=== PATIENT | male | born 1980 | race Caucasian/White ===

== ENCOUNTER 2020-06-09 11:59 | Emergency (ER) | payer BC, OTHER ==
[2020-06-09] MEDS ORDERED: Sodium Chloride 0.9% 10 ML Syringe FLUSH PRN (12:28)
[2020-06-09] MEDS ORDERED: Sodium Chloride 0.9% 2.5 ML Syringe FLUSH PRN (12:28)
--- NOTE | 2020-06-09 13:11 | EDM.PDOC ---
ED HPI GENERAL MEDICAL PROBLEM - General Chief Complaint: General Stated Complaint: PAIN BELOW STERNUM Time Seen by Provider: 06/09/20 12:01 Source of Information: Reports: Patient - History of Present Illness INITIAL COMMENTS - FREE TEXT/NARRATIVE: History of present illness: 39-year-old male presenting with lower chest/upper abdominal pain in the substernal/epigastric and bilateral lateral abdominal area for the last few weeks, worsening over the last few days. He describes it as an aching sensation like when you go to the gym and your muscles are sore the next day. He reports worsened when he lays down or walks or exerts himself. Mild associated shortness of breath. No cough, chills or fever, no body aches, no nausea or vomiting. He does report that he feels like his abdomen is distended and some constipation. No diarrhea. Reports his symptoms are similar to 2 and half years ago when he had fluid around his heart, seen on an echocardiogram. He is not sure the etiology of that other than that he has a significant family cardiac history including LA in both father and grandfather in their 40s and 60s. Father in his 60s of heart disease. Also has family history of factor V Leiden Review of systems: As per history of present illness and below otherwise all systems reviewed and negative. Past medical history: As per history of present illness and as reviewed below otherwise noncontributory. Cardiomegaly Surgical history: As per history of present illness and as reviewed below otherwise noncontributory. Social history: No reported history of drug or alcohol abuse. Uses vapor cigarettes, rare alcohol, no drugs Family history: As per history of present illness and as reviewed below otherwise noncontributory. Physical exam: GEN: no acute distress, well appearing HEENT: Atraumatic, normocephalic, mucous membranes moist, Neck: supple, nontender, trachea midline. Lungs: No respiratory distress. No rales, wheezing or rhonchi. No respiratory distress, no lower extremity edema Heart: RRR, no murmur, no rub, no irregularity Abdomen: Soft, nondistended, nontender. Back: nontender, no CVA tenderness Extremities: Atraumatic. Neurovascularly intact. Neuro: Awake, alert, oriented. Neuro Exam nonfocal. Skin: warm, dry, no lesions Diagnostics: Labs, EKG, CTA chest/abdomen/pelvis, COVID swab Therapeutics: Aspirin MDM: Impression: Plan: Definitive disposition and diagnosis as appropriate pending reevaluation and review of above. Chest Pain Score (Numeric/FACES): 5 - Related Data Allergies Allergy/AdvReac Type Severity Reaction Status Date / Time No Known Allergies Allergy Verified 06/09/20 12:59 Home Meds: Home Meds Furosemide [Lasix] 20 mg PO DAILY 06/09/20 [History] Metoprolol Succinate [[place]sp[place] Sprinkle] 200 mg PO DAILY 06/09/20 [History] Spironolactone 50 mg PO DAILY 06/09/20 [History] lisinopriL [Lisinopril] 40 mg PO DAILY 06/09/20 [History] Past Medical History HEENT History: Reports: None Cardiovascular History: Reports: High Cholesterol, Hypertension, Other (See Below) Other Cardiovascular History: Enlarged heart Respiratory History: Reports: None Gastrointestinal History: Reports: None Genitourinary History: Reports: None Musculoskeletal History: Reports: Amputation Neurological History: Reports: None Psychiatric History: Reports: Anxiety, Depression Endocrine/Metabolic History: Reports: None Dermatologic History: Reports: None - Infectious Disease History Infectious Disease History: Reports: Chicken Pox - Past Surgical History Other Musculoskeletal Surgeries/Procedures:: Ambutation of Right Index finger Social & Family History - Family History Cardiac: Reports: Arrhythmia, Cardiomyopathy, Heart Failure, High Cholesterol, Hypertension, LA - Tobacco Use Smoking Status *Q: Never Smoker - Caffeine Use Caffeine Use: Reports: None - Recreational Drug Use Recreational Drug Use: No ED ROS GENERAL - Review of Systems Review Of Systems: See Below (See HPI) ED EXAM, GENERAL - Physical Exam Exam: See Below (See HPI) EKG INTERPRETATION EKG Interpretation Comments: EKG performed today at 12:48 PM, sinus rhythm, rate 95, left atrial enlargement, no acute ischemia, no STEMI. Interpreted by me. Course - Vital Signs Text/Narrative:: Chest pain, abdominal pain, ongoing for 2 weeks, EKG unremarkable, CT angios chest/abdomen/pelvis with no dissection, no pulmonary embolism, no pericardial effusion, several lymph nodes in the pericardial fat and trace right pleural effusion, troponin negative, BNP slightly elevated. Patient does have strong family cardiac history, however no other acute findings on work-up here today, and pain has been ongoing for the last 2 weeks Reports symptoms started after he started to have the intense progressing month- long workout. He already has upcoming cardiology follow-up and will also refer back to primary care as well to get in to be seen sooner. The previous echocardiogram reports were reviewed from September 2018, during the patient's initial episode and June and August 2019. The patient's ejection fraction has ranged from 25 to 30% to 20 to 25%. No previous mention of the lymph node on prior echocardiograms. This was discussed with the patient. COVID swab negative. Stable for discharge. Last Recorded V/S: Last Vital Signs Temp 96 F L 06/09/20 12:19 Pulse 90 06/09/20 14:47 Resp 14 06/09/20 14:47 BP 120/79 06/09/20 14:47 Pulse Ox 96 06/09/20 14:47 - Orders/Labs/Meds Orders: Active Orders 24 hr Category Date Time Status Cardiac Monitoring [RC] . DIRECTED Care 06/09/20 12:28 Active EKG Documentation Completion [RC] STAT Care 06/09/20 12:29 Active Sodium Chloride 0.9% [Saline Flush] Med 06/09/20 12:28 Active 10 ml FLUSH ASDIRECTED PRN Sodium Chloride 0.9% [Saline Flush] Med 06/09/20 12:28 Active 2.5 ml FLUSH ASDIRECTED PRN Saline Lock Insert [OM.PC] Stat Oth 06/09/20 12:28 Ordered Medication Orders Sodium Chloride (Saline Flush) 10 ml FLUSH ASDIRECTED PRN PRN Reason: Keep Vein Open Last Admin: 06/09/20 14:54 Dose: 10 ml Documented by: CARINA Sodium Chloride (Saline Flush) 2.5 ml FLUSH ASDIRECTED PRN PRN Reason: Keep Vein Open Last Admin: 06/09/20 14:55 Dose: 2.5 ml Documented by: CARINA Labs: Laboratory Tests 06/09/20 06/09/20 06/09/20 Range/Units 12:35 12:35 12:35 WBC 9.18 (4.0-11.0) K/uL RBC 4.94 (4.50-5.90) M/uL Hgb 14.7 (13.0-17.0) g/dL Hct 43.5 (38.0-50.0) % MCV 88.1 (80.0-98.0) fL MCH 29.8 (27.0-32.0) pg MCHC 33.8 (31.0-37.0) g/dL RDW Std Deviation 44.3 (28.0-62.0) fl RDW Coeff of Abraham 14 (11.0-15.0) % Plt Count 207 (150-400) K/uL MPV 11.00 (7.40-12.00) fL Neut % (Auto) 70.9 (48.0-80.0) % Lymph % (Auto) 22.9 (16.0-40.0) % Pierce % (Auto) 5.8 (0.0-15.0) % Eos % (Auto) 0.3 (0.0-7.0) % Baso % (Auto) 0.1 (0.0-1.5) % Neut # (Auto) 6.5 H (1.4-5.7) K/uL Lymph # (Auto) 2.1 (0.6-2.4) K/uL Pierce # (Auto) 0.5 (0.0-0.8) K/uL Eos # (Auto) 0.0 (0.0-0.7) K/uL Baso # (Auto) 0.0 (0.0-0.1) K/uL Nucleated RBC % 0.0 /100WBC Nucleated RBCs # 0 K/uL INR Sodium 139 (136-148) mmol/L Potassium 4.0 (3.5-5.1) mmol/L Chloride 105 (98-107) mmol/L Carbon Dioxide 26.1 (21.0-32.0) mmol/L BUN 15 (7.0-18.0) mg/dL Creatinine 1.4 H (0.8-1.3) mg/dL Est Cr Clr Drug Dosing 85.51 mL/min Estimated GFR (MDRD) 56.7 ml/min Glucose 124 H (74-106) mg/dL Calcium 8.6 (8.5-10.1) mg/dL Magnesium 1.8 (1.8-2.4) mg/dL Total Bilirubin 0.6 (0.2-1.0) mg/dL AST 39 H (15-37) IU/L ALT 62 (14-63) IU/L Alkaline Phosphatase 48 (46-116) U/L Troponin I (0.000-0.056) ng/mL B-Natriuretic Peptide 295 H (<100) PG/ML Total Protein 7.0 (6.4-8.2) g/dL Albumin 3.7 (3.4-5.0) g/dL Globulin 3.3 (2.6-4.0) g/dL Albumin/Globulin Ratio 1.1 (0.9-1.6) Lipase 137 (73-393) U/L COVID-19 (SUE) (NEGATIVE) 06/09/20 06/09/20 06/09/20 Range/Units 12:35 13:20 14:53 WBC (4.0-11.0) K/uL RBC (4.50-5.90) M/uL Hgb (13.0-17.0) g/dL Hct (38.0-50.0) % MCV (80.0-98.0) fL MCH (27.0-32.0) pg MCHC (31.0-37.0) g/dL RDW Std Deviation (28.0-62.0) fl RDW Coeff of Abraham (11.0-15.0) % Plt Count (150-400) K/uL MPV (7.40-12.00) fL Neut % (Auto) (48.0-80.0) % Lymph % (Auto) (16.0-40.0) % Pierce % (Auto) (0.0-15.0) % Eos % (Auto) (0.0-7.0) % Baso % (Auto) (0.0-1.5) % Neut # (Auto) (1.4-5.7) K/uL Lymph # (Auto) (0.6-2.4) K/uL Pierce # (Auto) (0.0-0.8) K/uL Eos # (Auto) (0.0-0.7) K/uL Baso # (Auto) (0.0-0.1) K/uL Nucleated RBC % /100WBC Nucleated RBCs # K/uL INR 1.03 Sodium (136-148) mmol/L Potassium (3.5-5.1) mmol/L Chloride (98-107) mmol/L Carbon Dioxide (21.0-32.0) mmol/L BUN (7.0-18.0) mg/dL Creatinine (0.8-1.3) mg/dL Est Cr Clr Drug Dosing mL/min Estimated GFR (MDRD) ml/min Glucose (74-106) mg/dL Calcium (8.5-10.1) mg/dL Magnesium (1.8-2.4) mg/dL Total Bilirubin (0.2-1.0) mg/dL AST (15-37) IU/L ALT (14-63) IU/L Alkaline Phosphatase (46-116) U/L Troponin I < 0.050 (0.000-0.056) ng/mL B-Natriuretic Peptide (<100) PG/ML Total Protein (6.4-8.2) g/dL Albumin (3.4-5.0) g/dL Globulin (2.6-4.0) g/dL Albumin/Globulin Ratio (0.9-1.6) Lipase (73-393) U/L COVID-19 (SUE) NEGATIVE (NEGATIVE) Meds: Medications Generic Name Dose Route Start Last Admin Trade Name Freq PRN Reason Stop Dose Admin Sodium Chloride 10 ml 06/09/20 12:28 06/09/20 14:54 Saline Flush FLUSH 10 ml ASDIRECTED PRN Administration Keep Vein Open Sodium Chloride 2.5 ml 06/09/20 12:28 06/09/20 14:55 Saline Flush FLUSH 2.5 ml ASDIRECTED PRN Administration Keep Vein Open Discontinued Medications Generic Name Dose Route Start Last Admin Trade Name Freq PRN Reason Stop Dose Admin Aspirin 324 mg 06/09/20 14:48 06/09/20 14:56 Aspirin PO 06/09/20 14:49 324 mg ONETIME ONE Administration Iopamidol 100 ml 06/09/20 14:37 06/09/20 14:38 Isovue Multipack-370 (76%) IVPUSH 06/09/20 14:38 100 ml ONETIME STA Administration - Re-Assessments/Exams Free Text/Narrative Re-Assessment/Exam: 06/09/20 15:00 The patient is comfortably and in no acute distress. He reports pain is approximately the same, has not worsened at all. Aspirin has been ordered and will be given. Discussed with patient all available results including all CT scan and labs. Only abnormal finding was on the CT scan in the pericardial fat there is a 4 cm lymph node as well as several other lymph nodes. This was discussed directly with the patient. He has no known prior history of cancer and has not had any pains or unexplained weight loss. He did report he was told there was some kind of a "? Cyst" (he cannot remember the exact terminology used) in the pericardial fat previously on his echocardiogram and he is wondering if that may be what they are referring to. Did discuss the possibility of some form of cancer including possibly metastatic cancer, and the need for outpatient follow-up with both primary care and cardiology. He does report he already has cardiology follow-up for June 27 and will keep that appointment. He also agrees to follow-up with his PCP. I did give him a copy of the CT scan report so that he can bring this to the appointment to discuss this directly with them for planning for further monitoring and evaluation. He does agree to do so. Departure - Departure Time of Disposition: 15:36 Disposition: Home, Self-Care 01 Clinical Impression: Chest pain, Abdominal pain, Enlarged lymph node - Discharge Information Instructions: Nonspecific Chest Pain, Adult Referrals: Chepe Oscar MD [Physician] - Forms: ED Department Discharge Additional Instructions: You were seen here today for chest pain, your work-up here today has been negative so far except that there is a lymph node in the fat around your heart. This will need to be closely monitored and possibly have further work-up done by her primary care physician or double needle stitcher. Please keep your upcoming cardiology appointment or call them to see if they can see you sooner. Also please call 1 of the primary care clinics listed below for further evaluation and continued ongoing primary care. Return to the ER for any worsening pain or difficulty breathing. Take Tylenol 500 mg to 1000 mg every 8 hours for the next few days and reassess your pain level. he following information is given to patients seen in the emergency department who are being discharged to home. This information is to outline your options for follow-up care. We provide all patients seen in our emergency department with a follow-up referral. The need for follow-up, as well as the timing and circumstances, are variable depending upon the specifics of your emergency department visit. If you don't have a primary care physician on staff, we will provide you with a referral. We always advise you to contact your personal physician following an emergency department visit to inform them of the circumstance of the visit and for follow-up with them and/or the need for any referrals to a consulting specialist. The emergency department will also refer you to a specialist when appropriate. This referral assures that you have the opportunity for follow-up care with a specialist. All of these measure are taken in an effort to provide you with optimal care, which includes your follow-up. Under all circumstances we always encourage you to contact your private physician who remains a resource for coordinating your care. When calling for follow-up care, please make the office aware that this follow-up is from your recent emergency room visit. If for any reason you are refused follow-up, please contact the [facility] Emergency Department at and asked to speak to the emergency department charge nurse. [facility] [address] [place], [place] [id number] [place] [address] Sepsis Event Note (ED) - Evaluation Sepsis Screening Result: Possible Sepsis Risk - Focused Exam Vital Signs: Vital Signs Temp Pulse Resp BP Pulse Ox 06/09/20 14:47 90 14 120/79 96 06/09/20 14:17 93 13 112/69 95 06/09/20 14:06 95 97 06/09/20 13:00 97 21 H 94 L 06/09/20 12:19 96 F L 103 H 20 111/81 96 - My Orders Last 24 Hours: My Active Orders 06/09/20 12:28 Cardiac Monitoring [RC] . DIRECTED Sodium Chloride 0.9% [Saline Flush] 10 ml FLUSH ASDIRECTED PRN Sodium Chloride 0.9% [Saline Flush] 2.5 ml FLUSH ASDIRECTED PRN Saline Lock Insert [OM.PC] Stat 06/09/20 12:29 EKG Documentation Completion [RC] STAT - Assessment/Plan Last 24 Hours: My Active Orders 06/09/20 12:28 Cardiac Monitoring [RC] . DIRECTED Sodium Chloride 0.9% [Saline Flush] 10 ml FLUSH ASDIRECTED PRN Sodium Chloride 0.9% [Saline Flush] 2.5 ml FLUSH ASDIRECTED PRN Saline Lock Insert [OM.PC] Stat 06/09/20 12:29 EKG Documentation Completion [RC] STAT
[2020-06-09 13:15] LABS: CARBON DIOXIDE,CO2 26.1 mmol/L (21.0-32.0)
[2020-06-09] MEDS ORDERED: Iopamidol 755 MG/ML 500 ML Multipack Bottle IVPUSH STA (14:37)
--- NOTE | 2020-06-09 14:39 | CT ---
CT chest Technique: Multiple axial sections were obtained from above the lung apices inferiorly through the lung bases. Intravenous contrast was utilized as an aortogram study. Pulmonary arteries are not optimally opacified for good evaluation of pulmonary embolism. Comparison: No prior chest imaging is available. Findings: Thoracic aorta shows no aneurysm or dissection. Pulmonary arteries are suboptimally opacified. No larger pulmonary emboli within the main or segmental branches are seen. Smaller pulmonary emboli or subsegmental pulmonary emboli could easily be missed. Slight lymph nodes is noted within the mediastinum believed to be within normal limits. There are an enlarged lymph nodes noted within the paracardial fat with largest lymph node measuring about 4.3 cm. Trace right-sided pleural effusion is seen. No axillary adenopathy is seen. Impression: 1. Enlarged lymph nodes within the right paracardial fat with largest lymph node measuring 4.3 cm. Etiology for this finding is not seen and difficult to exclude metastatic lymph nodes, although no additional adenopathy is seen within other portions of the chest or abdomen. 2. No evidence of thoracic aortic aneurysm or dissection. 3. Suboptimal opacification of the pulmonary arteries. No larger pulmonary embolism within the main or proximal segmental branches. Smaller pulmonary emboli and subsegmental pulmonary emboli could easily be missed. 4. Trace right-sided pleural effusion. Diagnostic code #9 CT abdomen and pelvis Technique: Multiple axial sections were obtained from above the dome of the diaphragm inferiorly through the pubic symphysis. Intravenous contrast was utilized. No oral contrast has been given. Comparison: No prior abdominal imaging is available. Findings: Abdominal aorta shows no aneurysm. Celiac axis, superior mesenteric arteries and renal arteries are patent without significant stenosis or occlusion. Inferior mesenteric artery is also patent. Both common iliacs as well as internal and external iliac arteries are patent. Gallbladder contains no calcified gallstones. Liver contains no focal abnormality. Spleen shows no abnormality. Kidneys show symmetric contrast enhancement without hydronephrosis or mass. No retroperitoneal adenopathy or mesenteric abnormalities are seen. No pelvic mass or adenopathy is seen. No free fluid or inflammatory change is seen. Appendix not visualized. Bone window settings were reviewed which appear within normal limits for the patient's age. No acute osseous finding is appreciated. Impression: 1. Nothing acute is appreciated on CT study of the abdomen and pelvis. Abdominal aorta specifically shows no aneurysm or dissection. Diagnostic code #2 This report was dictated in MDT
--- NOTE | 2020-06-09 14:39 | CT ---
This study was dictated as part of CT angiogram of abdomen and pelvis.
[2020-06-09] MEDS ORDERED: Aspirin 81 MG Tab.Chew PO ONE (14:48)
== END 2020-06-09 15:50 | disposition home or self-care (01) ==
LOC: MW.ED 11:59
DX: R07.9 Chest pain, unspecified (principal); R10.13 Epigastric pain; R59.9 Enlarged lymph nodes, unspecified; I10 Essential (primary) hypertension; Z20.828 Contact with and (suspected) exposure to other viral communicable diseases; Z79.899 Other long term (current) drug therapy
CPT/HCPCS: 36415; 71275; 74174; 80053; 83690; 83735; 83880; 84484; 85025; 85610; 87635; 93005; 99285; A9270; Q9967; 99283; U0002

== ENCOUNTER 2020-11-11 20:43 | Emergency (ER) | payer BC ==
[2020-11-11 22:03] LABS: BLOOD UREA NITROGEN,BUN 20 mg/dL (7.0-18.0); CHLORIDE,CL 106 mmol/L (98-107); GLUCOSE RANDOM 118 mg/dL (74-106); POTASSIUM,K 3.8 mmol/L (3.5-5.1); SODIUM,NA 143 mmol/L (136-148)
--- NOTE | 2020-11-11 22:10 | CR ---
Indication: Shortness of breath Technique: Chest 1 view Comparison: Chest x-ray 09/18/2018 Findings/Impression: Cardiovascular and mediastinum: Prominent globular cardiomegaly. Normal pulmonary vascularity. Lungs and pleural space: Lungs are clear. No sign of infiltrate or mass. No sign of pleural effusion. No pneumothorax. Bones and soft tissues: No acute findings. Dictated by Zachariah Shine MD @ Nov 11 2020 10:03PM Signed by Dr. Zachariah Shine @ Nov 11 2020 10:08PM
[2020-11-12] MEDS ORDERED: Furosemide 40 MG/4 ML VIAL IVPUSH ONE (01:06)
--- NOTE | 2020-11-12 02:26 | EDM.PDOC ---
ED HPI GENERAL MEDICAL PROBLEM - General Chief Complaint: Cardiovascular Problem Stated Complaint: HEADACHE Time Seen by Provider: 11/11/20 21:07 - History of Present Illness INITIAL COMMENTS - FREE TEXT/NARRATIVE: CHIEF COMPLAINT(S): Shortness of breath HISTORY OF PRESENT ILLNESS: This is a 40-year-old man with a past medical history of CHF with EF less than 20% who comes to the emergency department with a chief complaint of shortness of breath. The patient states that throughout the day he has been experiencing lightheadedness especially with walking and feels like he has knots in his throat. He states he is experiencing shortness of breath especially when walking and has been more fatigued. He denies any chest pain and denies any orthopnea. He states he does have some increased swelling in his lower extremities for which he does take Lasix. He denies any cough, fever, chills. He denies any pain. He denies any prior history of DVT or PE. He denies any recent travel or recent surgery. He states that he did not elect to get a defibrillator because of his job. REVIEW OF SYSTEMS: Constitutional: Positive for dizziness. Denies fever, chills. Eyes: Denies eye pain Ears, Nose, Mouth, & Throat: Denies earache Cardiovascular: Positive for lower extremity edema. Denies chest pain Respiratory: Shortness of breath and exertional dyspnea Gastrointestinal: Denies Nausea, vomiting, diarrhea, hematochezia. Genitourinary: Denies hematuria Skin:Denies a rash Neurological: Denies blurred vision numbness, tingling, weakness Psychiatric: Denies depression PAST MEDICAL HISTORY: As per history of present illness and as reviewed below otherwise noncontributory. SURGICAL HISTORY: As per history of present illness and as reviewed below otherwise noncontributory. SOCIAL HISTORY: As per history of present illness and as reviewed below otherwise noncontributory. FAMILY HISTORY: As per history of present illness and as reviewed below otherwise noncontributory. EXAMINATION OF ORGAN SYSTEMS/BODY AREAS: Constitutional: Blood pressure was 116/78, heart rate 111, respiratory rate 18 with an oxygen saturation of 94% on room air. Temperature 36.7 General: Morbidly obese gentleman who appears to be in no acute distress. Psychiatric: Appropriate mood and affect. Eyes: No scleral icterus or conjunctival erythema ENMT: Moist mucous membranes. No pharyngeal erythema Cardiovascular: Regular, rate, and rhythm. No gallops, murmurs, or rubs. Bilateral upper extremity pulses symmetric and intact. Trace pitting edema of the bilateral lower extremities. This is symmetrical. No JVD. Respiratory: Lungs clear to auscultation bilaterally. No wheezes, rales, or rhonchi. Gastrointestinal: Soft, non-tender, non-distended. Normoactive bowel sounds Genitourinary: No suprapubic tenderness Musculoskeletal: Normal range of motion. Skin: No lesions or abrasions. Neurological: Alert, GCS 15 MEDICAL DECISION MAKING AND COURSE IN THE ED WITH INTERPRETATION/REVIEW OF DIAGNOSTIC STUDIES: This is a 40-year-old man with a past medical history of CHF with an ejection fraction less than 20% who comes to the emergency department with exertional dyspnea, dizziness and shortness of breath with initial oxygen saturation 94%. On my evaluation the patient's oxygen saturation was 96% and he was not tachypneic speaking in full sentences. Given his history of heart failure we will obtain an EKG and a cardiac work-up. Obtain a Covid swab and a chest x-ray. Twelve-lead EKG interpreted by myself. Normal sinus rhythm at a rate of 104 beats per minute. Normal axis. TX interval is 154 ms. QRS duration is [address] segments are normal without elevations or depressions. No Q waves present. Hypertrophy not noted. No changes demonstrated from prior EKG dated 06/09/2020. Interpretation: Normal sinus rhythm Laboratory: CBC is unremarkable. Coags are within normal limits. MP reveals mildly elevated BUN at 20, hyperglycemia at 118 otherwise unremarkable. Troponin x2 is negative. BNP is elevated at 324 which is increased from before at 295. This is significantly increased from December 2018. The radiological images were viewed by myself along with reading the report from the radiologist. Chest x-ray reveals globular cardiomegaly without any pulmonary vascular congestion or pulmonary edema. No acute findings. After labs I did discuss with the patient that given his history of heart fail ure I do believe that his symptoms are likely secondary to heart failure exacerbation although mild. I did discuss with him that given that he is high risk I would like to admit him to the hospital for heart failure exacerbation. He was amenable with this plan. We will provide the patient with 20 mg of IV Lasix. Prior to contacting Dr. Ricketts the patient stated that he did not want to stay in the hospital as he is urinating with the Lasix we have already given him. I did discuss with him that given that his severe heart failure discharge could likely and in his as he is high risk and that I would like him to be admitted. He states that he understands the risk and would like to be discharged. He states that he could contact his doctor Dr. Rod for close follow-up. The patient was apprised of the potential risks of leaving the hospital AGAINST MEDICAL ADVICE. They include serious complications, permanent disability, and . At the time of my interview with the patient, the patient was alert, oriented, and capable. I urged the patient to return to the hospital as soon as possible to complete their evaluation and treatment. DISPOSITION: The patient left AGAINST MEDICAL ADVICE. CONDITION: Serious PROCEDURES: None FINAL IMPRESSION(S)/DIAGNOSES: 1. Acute CHF exacerbation Akash Villarreal M.D. - Related Data Allergies Allergy/AdvReac Type Severity Reaction Status Date / Time No Known Allergies Allergy Verified 11/11/20 21:08 Home Meds: Home Meds Furosemide [Lasix] 20 mg PO DAILY 06/09/20 [History] Metoprolol Succinate [[place]sp[place] Sprinkle] 200 mg PO DAILY 06/09/20 [History] lisinopriL [Lisinopril] 40 mg PO DAILY 06/09/20 [History] Past Medical History HEENT History: Reports: None Cardiovascular History: Reports: High Cholesterol, Hypertension, Other (See Below) Other Cardiovascular History: Enlarged heart Respiratory History: Reports: None Gastrointestinal History: Reports: None Genitourinary History: Reports: None Musculoskeletal History: Reports: Amputation Neurological History: Reports: None Psychiatric History: Reports: Anxiety, Depression Endocrine/Metabolic History: Reports: None Dermatologic History: Reports: None - Infectious Disease History Infectious Disease History: Reports: Chicken Pox - Past Surgical History Other Musculoskeletal Surgeries/Procedures:: Ambutation of Right Index finger Social & Family History - Family History Cardiac: Reports: Arrhythmia, Cardiomyopathy, Heart Failure, High Cholesterol, Hypertension, [place] - Caffeine Use Caffeine Use: Reports: None - Recreational Drug Use Recreational Drug Use: No ED ROS GENERAL - Review of Systems Review Of Systems: See Below ED EXAM, GENERAL - Physical Exam Exam: See Below Course - Vital Signs Last Recorded V/S: Last Vital Signs Temp 36.6 C 11/12/20 02:45 Pulse 105 H 11/12/20 02:45 Resp 16 11/12/20 02:45 BP 117/84 11/12/20 02:45 Pulse Ox 96 11/12/20 02:45 - Orders/Labs/Meds Labs: Laboratory Tests 11/11/20 11/11/20 11/11/20 Range/Units 21:15 21:15 21:15 WBC 7.73 (4.0-11.0) K/uL RBC 4.88 (4.50-5.90) M/uL Hgb 14.4 (13.0-17.0) g/dL Hct 43.8 (38.0-50.0) % MCV 89.8 (80.0-98.0) fL MCH 29.5 (27.0-32.0) pg MCHC 32.9 (31.0-37.0) g/dL RDW Std Deviation 45.0 (28.0-62.0) fl RDW Coeff of Abraham 14 (11.0-15.0) % Plt Count 166 (150-400) K/uL MPV 10.80 (7.40-12.00) fL Neut % (Auto) 68.1 (48.0-80.0) % Lymph % (Auto) 23.2 (16.0-40.0) % Lucas % (Auto) 8.0 (0.0-15.0) % Eos % (Auto) 0.6 (0.0-7.0) % Baso % (Auto) 0.1 (0.0-1.5) % Neut # (Auto) 5.3 (1.4-5.7) K/uL Lymph # (Auto) 1.8 (0.6-2.4) K/uL Lucas # (Auto) 0.6 (0.0-0.8) K/uL Eos # (Auto) 0.1 (0.0-0.7) K/uL Baso # (Auto) 0.0 (0.0-0.1) K/uL Nucleated RBC % 0.0 /100WBC Nucleated RBCs # 0 K/uL INR 1.09 Sodium 143 (136-148) mmol/L Potassium 3.8 (3.5-5.1) mmol/L Chloride 106 (98-107) mmol/L Carbon Dioxide 26.0 (21.0-32.0) mmol/L BUN 20 H (7.0-18.0) mg/dL Creatinine 1.3 (0.8-1.3) mg/dL Est Cr Clr Drug Dosing 91.18 mL/min Estimated GFR (MDRD) > 60.0 ml/min Glucose 118 H (74-106) mg/dL Calcium 8.9 (8.5-10.1) mg/dL Magnesium 2.0 (1.8-2.4) mg/dL Troponin I < 0.050 (0.000-0.056) ng/mL B-Natriuretic Peptide (<100) PG/ML SARS-CoV-2 RNA (SUE) (NEGATIVE) 11/11/20 11/12/20 11/12/20 Range/Units 21:15 00:00 00:40 WBC (4.0-11.0) K/uL RBC (4.50-5.90) M/uL Hgb (13.0-17.0) g/dL Hct (38.0-50.0) % MCV (80.0-98.0) fL MCH (27.0-32.0) pg MCHC (31.0-37.0) g/dL RDW Std Deviation (28.0-62.0) fl RDW Coeff of Abraham (11.0-15.0) % Plt Count (150-400) K/uL MPV (7.40-12.00) fL Neut % (Auto) (48.0-80.0) % Lymph % (Auto) (16.0-40.0) % Lucas % (Auto) (0.0-15.0) % Eos % (Auto) (0.0-7.0) % Baso % (Auto) (0.0-1.5) % Neut # (Auto) (1.4-5.7) K/uL Lymph # (Auto) (0.6-2.4) K/uL Lucas # (Auto) (0.0-0.8) K/uL Eos # (Auto) (0.0-0.7) K/uL Baso # (Auto) (0.0-0.1) K/uL Nucleated RBC % /100WBC Nucleated RBCs # K/uL INR Sodium (136-148) mmol/L Potassium (3.5-5.1) mmol/L Chloride (98-107) mmol/L Carbon Dioxide (21.0-32.0) mmol/L BUN (7.0-18.0) mg/dL Creatinine (0.8-1.3) mg/dL Est Cr Clr Drug Dosing mL/min Estimated GFR (MDRD) ml/min Glucose (74-106) mg/dL Calcium (8.5-10.1) mg/dL Magnesium (1.8-2.4) mg/dL Troponin I < 0.050 (0.000-0.056) ng/mL B-Natriuretic Peptide 324 H (<100) PG/ML SARS-CoV-2 RNA (SUE) NEGATIVE (NEGATIVE) Meds: Medications Discontinued Medications Generic Name Dose Route Start Last Admin Trade Name Freq PRN Reason Stop Dose Admin Furosemide 20 mg 11/12/20 01:06 11/12/20 01:21 Lasix IVPUSH 11/12/20 01:07 20 mg NOW ONE Administration Departure - Departure Time of Disposition: 02:20 Disposition: Home, Self-Care 01 Condition: Fair Clinical Impression: Congestive heart failure Qualifiers: Heart failure type: unspecified Heart failure chronicity: acute on chronic Qualified Code(s): I50.9 - Heart failure, unspecified Instructions: Heart Failure, Self Care, [id number], Heart Failure Action Plan, Preventing Heart Failure, Heart Failure Exacerbation Referrals: PCP,None [Primary Care Provider] - Chepe Oscar MD [Physician] - Forms: ED Department Discharge, Refusal of Care AMA Additional Instructions: Your evaluated today on an emergent basis. At this time I did suggest you be admitted for mild heart failure exacerbation. We did provide you with Lasix and you were maintaining adequate urine output. I would continue your home Lasix dose. 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 If you have any worsening shortness of breath I do recommend you immediately come back to the emergency department. The patient was apprised of the potential risks of leaving the hospital AGAINST MEDICAL ADVICE. They include serious complications, permanent disability, and . At the time of my interview with the patient, the patient was alert, oriented, and capable. I urged the patient to return to the hospital as soon as possible to complete their evaluation and treatment. [facility] [address] [place] [address] [facility] [address] [place] [address] The patient is informed of any results of their evaluation and diagnostic workup and all questions are answered. They are given discharge instructions and return precautions. The patient is stable for discharge. The patient states they understand and agree with the plan and that they will return if their symptoms get worse or if they have any new concerns. The following information is given to patients seen in the emergency department who are being discharged to home. This information is to outline your options for follow-up care. We provide all patients seen in our emergency department with a follow-up referral. The need for follow-up, as well as the timing and circumstances, are variable depending upon the specifics of your emergency department visit. If you don't have a primary care physician on staff, we will provide you with a referral. We always advise you to contact your personal physician following an emergency department visit to inform them of the circumstance of the visit and for follow-up with them and/or the need for any referrals to a consulting specialist. The emergency department will also refer you to a specialist when appropriate. This referral assures that you have the opportunity for follow-up care with a specialist. All of these measure are taken in an effort to provide you with optimal care, which includes your follow-up. Under all circumstances we always encourage you to contact your private physician who remains a resource for coordinating your care. When calling for follow-up care, please make the office aware that this follow-up is from your recent emergency room visit. If for any reason you are refused follow-up, please contact the [facility] Emergency Department at and asked to speak to the emergency department charge nurse. Sepsis Event Note (ED) - Evaluation Sepsis Screening Result: No Definite Risk
== END 2020-11-12 02:45 | disposition home or self-care (01) ==
LOC: MW.ED 20:43
DX: I11.0 Hypertensive heart disease with heart failure (principal); I50.9 Heart failure, unspecified; Z79.899 Other long term (current) drug therapy; Z20.822 Contact with and (suspected) exposure to COVID-19
CPT/HCPCS: 36415; 71045; 80048; 83735; 83880; 84484; 85025; 85610; 87635; 93005; 96374; 99285; J1940; 93010; 99284; U0002

== ENCOUNTER 2022-06-22 17:07 | Emergency (ER) | payer BC ==
[2022-06-22] MEDS ORDERED: Aspirin 81 MG Tab.Chew PO ONE (18:36)
[2022-06-22 18:55] LABS: CARBON DIOXIDE,CO2 28.2 mmol/L (21.0-32.0)
[2022-06-22 19:44] LABS: CORONAVIRUS COVID-19 NAA NEGATIVE (NEGATIVE); INFLUENZA A NAA NEGATIVE (NEGATIVE); INFLUENZA B NAA NEGATIVE (NEGATIVE)
[2022-06-22] MEDS ORDERED: Furosemide 40 MG/4 ML VIAL IVPUSH ONE (20:03)
== END 2022-06-22 22:15 ==
LOC: MW.ED 17:07
DX: I20.0 Unstable angina (principal); I11.0 Hypertensive heart disease with heart failure; I50.9 Heart failure, unspecified; R55 Syncope and collapse; E78.00 Pure hypercholesterolemia, unspecified; Z79.899 Other long term (current) drug therapy; Z20.822 Contact with and (suspected) exposure to COVID-19
CPT/HCPCS: 0240U; 36415; 71046; 80053; 83880; 84484; 85025; 93005; 96374; 99285; A9270; J1940

== ENCOUNTER 2022-10-26 12:57 | Emergency (ER) | payer BC ==
[2022-10-26] MEDS ORDERED: Sodium Chloride 0.9% 10 ML Syringe FLUSH PRN (13:12)
[2022-10-26] MEDS ORDERED: Sodium Chloride 0.9% 2.5 ML Syringe FLUSH PRN (13:12)
[2022-10-26 13:46] LABS: CARBON DIOXIDE,CO2 27.7 mmol/L (21.0-32.0); POTASSIUM,K 4.5 mmol/L (3.5-5.1)
[2022-10-26 14:09] LABS: CORONAVIRUS COVID-19 NAA NEGATIVE (NEGATIVE); INFLUENZA A NAA NEGATIVE (NEGATIVE); INFLUENZA B NAA NEGATIVE (NEGATIVE)
== END 2022-10-26 17:04 | disposition home or self-care (01) ==
LOC: MW.ED 12:57
DX: I11.0 Hypertensive heart disease with heart failure (principal); I50.9 Heart failure, unspecified; Z79.899 Other long term (current) drug therapy; Z72.0 Tobacco use; Z20.822 Contact with and (suspected) exposure to COVID-19
CPT/HCPCS: 0240U; 36415; 71045; 80053; 83880; 84484; 85025; 93005; 99285; J3490; 93010; 99284

== ENCOUNTER 2022-12-13 07:10 | Emergency (ER) | payer BC ==
[2022-12-13] MEDS ORDERED: Sodium Chloride 0.9% 20 ML SDV IV PRN (07:57)
[2022-12-13 08:16] LABS: CORONAVIRUS COVID-19 NAA NEGATIVE (NEGATIVE); INFLUENZA A NAA NEGATIVE (NEGATIVE); INFLUENZA B NAA NEGATIVE (NEGATIVE); RESPIRATORY SYNCYTIAL VIR NAA NEGATIVE (NEGATIVE)
[2022-12-13 09:33] LABS: CARBON DIOXIDE,CO2 22.5 mmol/L (21.0-32.0); POTASSIUM,K 4.5 mmol/L (3.5-5.1)
[2022-12-13] MEDS ORDERED: Ondansetron 4 MG/2 ML SDV IVPUSH ONE (09:55)
[2022-12-13] MEDS ORDERED: Furosemide 40 MG/4 ML VIAL IV ONE (10:30)
== END 2022-12-13 12:44 | disposition home or self-care (01) ==
LOC: MW.ED 07:10
DX: I11.0 Hypertensive heart disease with heart failure (principal); I50.9 Heart failure, unspecified; R53.83 Other fatigue; Z79.899 Other long term (current) drug therapy; Z20.822 Contact with and (suspected) exposure to COVID-19
CPT/HCPCS: 0241U; 36415; 71045; 80053; 83605; 83690; 83735; 83880; 84484; 85025; 85610; 85730; 86850; 86900; 86901; 87040; 93005; 96374; 96375; 99284; J1940; J2405

== ENCOUNTER 2024-08-11 05:21 | Emergency (ER) | payer BC ==
[2024-08-11] MEDS ORDERED: Sodium Chloride 0.9% 10 ML Syringe FLUSH PRN ×3 (05:31→05:49)
[2024-08-11] MEDS ORDERED: Furosemide 40 MG/4 ML VIAL IVPUSH ONE (05:49)
[2024-08-11 06:00] LABS: BASOPHILS ABSOLUTE AUTO 0.03 K/uL (0.00-0.20); BASOPHILS PERCENT AUTO 0.3 % (0.0-1.0); EOSINOPHILS ABSOLUTE AUTO 0.04 K/uL (0.00-0.45); EOSINOPHILS PERCENT AUTO 0.3 % (0.0-6.0); HEMATOCRIT 47.3 % (42.0-52.0); HEMOGLOBIN 15.7 g/dL (14.0-18.0); IMMATURE GRAN ABSOLUTE AUTO 0.03 K/uL (0.00-0.05); IMMATURE GRAN PERCENT AUTO 0.3 % (0.0-0.4); LYMPHOCYTES ABSOLUTE AUTO 1.84 K/uL (1.00-4.80); LYMPHOCYTES PERCENT AUTO 15.9 % (24.0-44.0); MEAN CORPUSCULAR HEMOGLOBIN 30.3 pg (28.0-32.0); MEAN CORPUSCULAR HGB CONC 33.2 g/dL (32.0-36.0); MEAN CORPUSCULAR VOLUME 91.3 fL (83.0-99.0); MEAN PLATELET VOLUME 10.6 fL (9.4-12.4); MONOCYTES ABSOLUTE AUTO 0.63 K/uL (0.00-0.80); MONOCYTES PERCENT AUTO 5.5 % (0.0-8.0); NEUTROPHILS ABSOLUTE AUTO 8.97 K/uL (1.80-7.70); NEUTROPHILS PERCENT AUTO 77.7 % (41.0-71.0); PLATELET COUNT,PLT 202 K/uL (150-400); RED BLOOD CELL COUNT 5.18 M/uL (4.52-5.90); WHITE BLOOD CELL COUNT,WBC 11.54 K/uL (3.9-11.3)
[2024-08-11] MEDS: Pantoprazole 40 MG in Sodium Chloride 0.9% 10 ML IVPUSH ONE (06:05)
[2024-08-11] MEDS: Ondansetron 4 MG/2 ML SDV IVPUSH ONE (06:06)
[2024-08-11 06:13] LABS: INR 1.14 (0.86-1.11)
[2024-08-11 06:26] LABS: A/G RATIO 1.1 (0.9-1.6); BILIRUBIN TOTAL 0.9 mg/dL (0.2-1.0); CALCIUM 9.2 mg/dL (8.5-10.1); CARBON DIOXIDE,CO2 26.6 mmol/L (21.0-32.0); CREATININE 1.8 mg/dL (0.8-1.3); EST CRCL DRUG DOSING (CG) 62.16 mL/min; MAGNESIUM 2.3 mg/dL (1.8-2.4); POTASSIUM,K 4.8 mmol/L (3.5-5.1); PROTEIN TOTAL,TP 7.6 g/dL (6.4-8.2)
[2024-08-11 06:38] LABS: CORONAVIRUS COVID-19 NAA NEGATIVE (NEGATIVE); INFLUENZA A NAA NEGATIVE (NEGATIVE); INFLUENZA B NAA NEGATIVE (NEGATIVE); RESPIRATORY SYNCYTIAL VIR NAA NEGATIVE (NEGATIVE)
[2024-08-11] MEDS: Iopamidol 755 Mg/ML 100 ML Bottle IVPUSH ONE (07:12)
[2024-08-11] MEDS: Furosemide 40 MG/4 ML VIAL IVPUSH ONE (07:25)
[2024-08-11] MEDS: cefTRIAXone 2 GM in Sodium Chloride 0.9% 50 ML IV ONE (09:33)
[2024-08-11] MEDS: Morphine 4 MG/ML Syringe IVPUSH ONE ×2 (10:31→14:18)
[2024-08-11] MEDS: Ketorolac 30 MG/ML SDV IVPUSH ONE (10:32)
== END 2024-08-11 15:23 ==
LOC: MW.ED 05:21
DX: R06.02 Shortness of breath (principal); R11.2 Nausea with vomiting, unspecified; R79.89 Other specified abnormal findings of blood chemistry; Z95.810 Presence of automatic (implantable) cardiac defibrillator; Z90.49 Acquired absence of other specified parts of digestive tract; Z79.01 Long term (current) use of anticoagulants; I13.0 Hypertensive heart and chronic kidney disease with heart failure and stage 1 through stage 4 chronic kidney disease, or unspecified chronic kidney disease; I50.9 Heart failure, unspecified; N18.9 Chronic kidney disease, unspecified; Z79.899 Other long term (current) drug therapy; Z79.84 Long term (current) use of oral hypoglycemic drugs; Z79.82 Long term (current) use of aspirin
CPT/HCPCS: 0241U; 36415; 71045; 71260; 74177; 76705; 80053; 83605; 83690; 83735; 83880; 85025; 85610; 87040; 93005; 96365; 96375; 99285; J0696; J1885; J1940; J2270; J2405; J2470; J3490; Q9967; 99284